=== PATIENT | male | born 1965 | race Caucasian/White ===

== ENCOUNTER 2021-08-21 13:22 | Outpatient (CLI) | payer BC | END 2021-08-21 13:23 | disposition home or self-care (01) | LOC: BICCT 13:22 | PROVIDERS: ATTEND Otolaryngology Plastic Surgery within the Head & Neck | DX: H90.3 Sensorineural hearing loss, bilateral (principal) | CPT/HCPCS: 70480 ==

== ENCOUNTER 2024-06-19 09:19 | Outpatient (CLI) | payer OTHER | END 2024-06-19 09:20 | disposition home or self-care (01) | LOC: BICRAD 09:19 | PROVIDERS: ATTEND Chiropractor | DX: M79.671 Pain in right foot (principal); J98.9 Respiratory disorder, unspecified; Z91.82 Personal history of military deployment; M77.31 Calcaneal spur, right foot | CPT/HCPCS: 71046 ==